=== PATIENT | male | born 1960 | race Caucasian/White ===

== ENCOUNTER → 2018-11-09 | Outpatient (CLI) | payer BC ==
--- NOTE | 2018-11-09 11:44 | NM ---
EXAMINATION TYPE: NM stress cardiolite complete DATE OF EXAM: 11/09/2018 COMPARISON: NONE HISTORY: Chest pain TECHNIQUE: After the intravenous administration of 10.05 mCi Tc 99m Sestamibi - Rest images obtained 63 minutes post injection. The patient exercised using a RICKY protocol and 1 minute prior to peak exercise was injected with 25.9 mCi Tc 99m Sestamibi - Stress images obtained 5 minutes post injecti on. FINDINGS: Targeted heart rate was achieved during performance of the study. Review of stress and rest SPECT amelie ges demonstrates suggestion of a small area of stress-induced reversibility within the inferior wall. Gated analysis shows normal wall motion with an estimated left ventricular ejection fraction of 62 %. IMPRESSION: Findings suggestive of a small area of stress-induced reversibility involving the inferior wall. A [place] level critical message alert has been initiated for Nadya Ayala MD via the [employer] Critical Results System on 11/09/2018 11:42 AM. This message alert has been sent to Nadya conde MD via the preferences provided by the clinician for the receipt of Radiology Critical Findin gs. Message ID [id number].
--- NOTE | 2018-11-09 15:31 | EST ---
EXERCISE STRESS AGE: 58 SEX: M HT: 5'7" WT: 185 PROTOCOL: Cardiolite Tru Stress test STAGE: II DURATION OF EXERCISE: 8:00 HEART RATE REST: 53 BLOOD PRESSURE REST: 135/81 MAXIMUM HEART RATE ACHIEVED: 140 MAXIMUM BLOOD PRESSURE: 166/90 85% MPHR: 136 100% MPHR: 160 METS: 9.7 INDICATIONS: Physical. CLINICAL INFORMATION: STRESS DATA: Pretesting physical examination showed a heart rate of 53, pressure is 135/81 mmHg. Baseline EKG showed sinus mechanism. The patient exercised on the treadmill according to Tru protocol for a total of 8 minutes and achieved 9.7 METS with max heart rate was 140 which is about 87% of maximum predicted heart rate. Maximum blood pressure was 166/90 mmHg. Clinically, the patient did not have any symptoms of chest pain or chest discomfort during the testing or on recovery and the EKG showed 0.[address]-segment depression. CONCLUSION: 1. Excellent exercise tolerance. 2. Mild EKG changes in response to exercise. 3. Please follow up on the Cardiolite portion on separate report from the Radiology Department. MMODL / IJN: [id number] /
== END ==
LOC: RADNMMAIN 07:52
PROVIDERS: ATTEND Family Medicine
DX: R07.89 Other chest pain (principal)
CPT/HCPCS: 93017; 78452; A9500

== ENCOUNTER 2021-04-29 16:18 | Inpatient (IN) | payer BC ==
[2021-04-29] MEDS ORDERED: MORPHINE SULFATE 4 MG/ML SYRINGE IVP STA (16:38)
--- NOTE | 2021-04-29 17:05 | ED ---
Fall HPI - General Chief Complaint: Fall Stated Complaint: fall Source: EMS Mode of arrival: EMS - History of Present Illness Initial Comments: 61-year-old male who presents to the emergency department after he fell off of the ladder. He states that he was only 2 foot up on the ladder however he lost his balance and fell, subsequently going over a deck. Entire height was about 8 feet. He denies hitting his head or having any loss of consciousness. He denies any neck or back pain. He does complain of left-sided rib pain and some mild shortness of breath. Patient is a small scratch noted to the tip of his nose. He denies any headaches or visual changes. No weakness or pain in his upper or lower extremities. He is not on any blood thinners. Patient arrives in c-collar. He was administered 500 mL of normal saline and 30 mg of Toradol for fever and pain - Related Data Home Medications Medication Instructions Recorded Confirmed Aspirin EC [Ecotrin Low Dose] 81 mg PO HS 04/29/21 04/29/21 Atorvastatin [Lipitor] 40 mg PO HS 04/29/21 04/29/21 Ergocalciferol [Vitamin D2 (1250 1,250 mcg PO GARCIA 04/29/21 04/29/21 Mcg = 31151 Iu)] Allergies Allergy/AdvReac Type Severity Reaction Status Date / Time acetaminophen [From Vicodin] AdvReac Nausea & Verified 04/29/21 18:14 Vomiting hydrocodone [From Vicodin] AdvReac Nausea & Verified 04/29/21 18:14 Vomiting Review of Systems ROS Statement: Those systems with pertinent positive or pertinent negative responses have been documented in the HPI. ROS Other: All systems not noted in ROS Statement are negative. Past Medical History Past Medical History: Coronary Artery Disease (CAD), GERD/Reflux History of Any Multi-Drug Resistant Organisms: None Reported Past Surgical History: Heart Catheterization With Stent, Orthopedic Surgery, Tonsillectomy Additional Past Surgical History / Comment(s): bilateral shoulder sx, Past Psychological History: No Psychological Hx Reported Smoking Status: Former smoker Past Alcohol Use History: None Reported Past Drug Use History: Marijuana General Exam Limitations: no limitations Course Vital Signs 04/29/21 04/29/21 04/29/21 16:27 17:21 18:00 Temperature 97.8 F Pulse Rate 72 78 48 L Respiratory 18 18 20 Rate Blood Pressure 124/71 121/70 85/45 O2 Sat by Pulse 97 96 97 Oximetry 04/29/21 04/29/21 04/29/21 18:13 18:28 20:40 Temperature Pulse Rate 70 80 87 Respiratory 18 18 18 Rate Blood Pressure 106/62 134/62 136/77 O2 Sat by Pulse 98 100 100 Oximetry 04/29/21 04/29/21 04/30/21 20:55 21:08 00:23 Temperature Pulse Rate 49 L 73 Respiratory 18 18 Rate Blood Pressure 77/46 134/74 O2 Sat by Pulse 96 100 100 Oximetry 04/30/21 04/30/21 00:30 00:39 Temperature Pulse Rate 85 71 Respiratory 18 18 Rate Blood Pressure 134/78 113/67 O2 Sat by Pulse 100 100 Oximetry - Reevaluation(s) Reevaluation #1: 04/29/21 18:18 Patient went hypotensive and bradycardic. Activated as a level [address] Leos Reevaluation #2: thoravent placed. CXR performed 04/30/21 20:38 Reevaluation #3: CXR shows improvement in the patient's pneumothorax. The catheter does not appear to be in appropriate position. I spoke with the radiologist who states that there is improvement in the pneumothorax therefore he does believe it is in proper position. Spoke with Dr. Leos about the. He is concerned that the patient may develop a spontaneous pneumo overnight due to several rib fractures and would like large bore chest tube placed. 04/30/212121 Reevaluation #4: Have had multiple discussions with the patient in regards to removing previous catheter and needing a new chest tube. Patient is extremely resistive to a large chest tube. Did discuss risks of going to the floor without 1. Patient originally agreed to a chest CT did prove that the tube was not in the correct position before approving of removal for event. Patient then refused CT as well as removal. I had a long discussion with the patient. Patient finally agrees to CT. CT is read by myself with inadequate placement of the sore event. At this time I did discuss the need to proceed with full chest tube placement. Patient does take some convincing however eventually agrees 04/30/21 00:16 Reevaluation #5: 04/30/21 01:29 Successful placement of chest tube Spoke with Dr. Josue. Patient will be downgraded to telemetry as vitals are stable, patient is comfortable, not on any oxygen. 04/30/21 01:48 Medical Decision Making - Medical Decision Making Upon arrival patient is placed into room 6. He presents with left-sided rib pain. Patient is not a trauma activation at this time as he does not meet criteria. Plain CT of the chest was ordered. Results to return the patient does have a moderate pneumothorax on the left as well as rib fractures 2 through 8. Patient does have an episode of bradycardia, hypotension and altered mental status. He is placed into the trauma bay and up to continuous pulse ox and cardiac monitoring. TXA, type and screen, cbc, cmp ordered. Patient sent back for a dedicated ct of his abdomen because of this ruptured renal cyst. I also repeated a chest x-ray to evaluate for tension pneumothorax. Patient subsequently has Thorvent placed. Decompression is performed as there is release of air and is secured to chest wall. X-rays performed however there is questionable placement of the tubing. I spoke with the radiologist who feels that since the pneumothorax is resolved, the chest tube is likely in the appropriate position. I did seek with Dr. Leos who is concerned that the patient could have return of his pneumothorax socially with his unstable rib fractures. I discussed this with the patient however he is resistant at getting another chest tube. Patient would like to know if tube is correctly placed or not. Patient does opt to go for a repeat CT to evaluate for catheter placement. He is aware of the risks of radiation exposure. CT is performed with visualization that the Thoravent is in the subcutaneous tissues. 20% pneumothorax persists. Because of this I am able to convince the patient to get a 28-Frisian chest tube. Procedure is performed and repeat chest x-ray demonstrates adequate placement. I spoke with Dr. Roy who states that the patient is stable he may go to telemetry. Patient will be admitted to Dr. Leos who was updated multiple times in regards to the patient's care. He is currently awaiting a bed on the floor - Lab Data Result diagrams: 04/29/21 17:55 04/29/21 17:55 Lab Results 04/29/21 04/29/21 04/29/21 Range/Units 17:55 17:55 17:55 WBC 11.3 H (3.8-10.6) k/uL RBC 4.30 (4.30-5.90) m/uL Hgb 13.8 (13.0-17.5) gm/dL Hct 40.1 (39.0-53.0) % MCV 93.2 (80.0-100.0) fL MCH 32.0 (25.0-35.0) pg MCHC 34.4 (31.0-37.0) g/dL RDW 12.6 (11.5-15.5) % Plt Count 156 (150-450) k/uL MPV 6.5 Neutrophils % 87 % Lymphocytes % 7 % Monocytes % 4 % Eosinophils % 0 % Basophils % 0 % Neutrophils # 9.8 H (1.3-7.7) k/uL Lymphocytes # 0.7 L (1.0-4.8) k/uL Monocytes # 0.5 (0-1.0) k/uL Eosinophils # 0.0 (0-0.7) k/uL Basophils # 0.0 (0-0.2) k/uL PT 11.2 (9.0-12.0) sec INR 1.1 (<1.2) APTT 22.9 (22.0-30.0) sec Sodium 140 (137-145) mmol/L Potassium 4.4 (3.5-5.1) mmol/L Chloride 106 (98-107) mmol/L Carbon Dioxide 25 (22-30) mmol/L Anion Gap 9 mmol/L BUN 20 (9-20) mg/dL Creatinine 0.95 (0.66-1.25) mg/dL Est GFR (CKD-EPI)AfAm >90 (>60 ml/min/1.73 sqM) Est GFR (CKD-EPI)NonAf 85 (>60 ml/min/1.73 sqM) Glucose 120 H (74-99) mg/dL Calcium 9.1 (8.4-10.2) mg/dL Total Bilirubin 1.2 (0.2-1.3) mg/dL AST 36 (17-59) U/L ALT 34 (4-49) U/L Alkaline Phosphatase 65 (38-126) U/L Total Protein 6.3 (6.3-8.2) g/dL Albumin 4.0 (3.5-5.0) g/dL - EKG Data EKG Comments: EKG demonstrates normal sinus rhythm with a ventricular rate of 60. MN interval 134. QRS 72. QTC 404. No acute ST segment elevations or depressions concerning for ischemic changes Disposition Clinical Impression: Fall, Multiple rib fractures, Acute pneumothorax, Ruptured cyst of kidney Disposition: ADMITTED IP TO THIS HOSP Condition: Serious Is patient prescribed a controlled substance at d/c from ED?: No Decision to Admit Reason: Admit from EC Decision Date: 04/29/21 Decision Time: 19:45
--- NOTE | 2021-04-29 17:32 | CT ---
EXAMINATION TYPE: CT chest wo con DATE OF EXAM: 04/29/2021 COMPARISON: Left rib pain status post fall from ladder. HISTORY: left sided rib pain following fall from ladder CT DLP: 299.7 mGycm. Automated Exposure Control for Dose Reduction was Utilized. TECHNIQUE: CT scan of the thorax is performed without IV contrast. FINDINGS: LUNGS: There is moderate left pneumothorax. There is small to moderate hazy opacity in the left lower lobe and additional mild dependent opacities elsewhere in the left lung. Minimal right atelectasis. Small left pleural effusion. MEDIASTINUM: Lack of IV contrast is noted to limit evaluation for mediastinal and especially hilar ad enopathy. There are no definitive greater than 1 cm hilar or mediastinal lymph nodes. No cardiomega ly or pericardial effusion is seen. Moderate coronary atherosclerotic disease. OTHER: Acute left second through ninth rib fractures. Associated mild chest wall emphysema tracking i nto left lower neck. A 5 cm left renal upper lobe cyst with mild calcification, wall irregularity and surrounding fat stranding. IMPRESSION: Moderate left pneumothorax in the setting of multiple rib fractures as enumerated above. Associated m ild to moderate pulmonary contusion. 5 cm left renal cyst with wall irregularity and surrounding inflammatory changes, concerning for post traumatic rupture. Attention on follow-up. Findings were reported to caring physician by me at time of dictation.
[2021-04-29] MEDS ORDERED: LIDOCAINE 1% INJ 10MG/ML (20 ML MDV) SQ ONE (17:35)
[2021-04-29] MEDS ORDERED: KETAMINE 10 MG/ML 20 ML VIAL IV ONE (17:39)
[2021-04-29] MEDS ORDERED: TRANEXAMIC ACID 1,000 MG in SODIUM CHLORIDE 0.9% 100 ML IV STA (18:08)
[2021-04-29 18:10] LABS: Basophils % (A) 0 %; Eosinophils % (A) 0 %; HCT 40.1 % (39.0-53.0); HGB 13.8 gm/dL (13.0-17.5); Lymphocytes # (A) 0.7 k/uL (1.0-4.8); Lymphocytes % (A) 7 %; MCHC 34.4 g/dL (31.0-37.0); MCV 93.2 fL (80.0-100.0); Mean Platelet Volume 6.5; Monocytes # (A) 0.5 k/uL (0-1.0); Monocytes % (A) 4 %; Neutrophils # (A) 9.8 k/uL (1.3-7.7); Neutrophils % (A) 87 %; Platelet Count 156 k/uL (150-450); RDW 12.6 % (11.5-15.5); WBC 11.3 k/uL (3.8-10.6)
[2021-04-29 18:20] LABS: INR 1.1 (<1.2); Partial Thromboplastin Time 22.9 sec (22.0-30.0); Prothrombin Time 11.2 sec (9.0-12.0)
[2021-04-29 18:23] LABS: ALT 34 U/L (4-49); AST 36 U/L (17-59); African American GFR (CKD) >90 (>60 ml/min/1.73 sqM); Alkaline Phosphatase 65 U/L (38-126); Anion Gap 9 mmol/L; Blood Urea Nitrogen 20 mg/dL (9-20); Calcium 9.1 mg/dL (8.4-10.2); Carbon Dioxide 25 mmol/L (22-30); Chloride 106 mmol/L (98-107); Glucose 120 mg/dL (74-99); Non-African American GFR(CKD) 85 (>60 ml/min/1.73 sqM); Potassium 4.4 mmol/L (3.5-5.1); Sodium 140 mmol/L (137-145); Total Bilirubin 1.2 mg/dL (0.2-1.3); Total Protein 6.3 g/dL (6.3-8.2)
--- NOTE | 2021-04-29 18:44 | XR ---
EXAMINATION TYPE: XR chest 1V DATE OF EXAM: 04/29/2021 COMPARISON: Same-day CT. HISTORY: Pain status post fall. TECHNIQUE: Single frontal view of the chest is obtained. FINDINGS: There is redemonstration of moderate left pneumothorax with accompanying opacity in the mi d to lower lung. The cardiac silhouette size is within normal limits. Multiple left rib fractures ar e better depicted on prior CT. Associated chest wall emphysema. IMPRESSION: Persistent moderate left pneumothorax with associated opacities. Multiple left rib fractures.
--- NOTE | 2021-04-29 19:15 | CT ---
EXAMINATION TYPE: CT abdomen pelvis w con DATE OF EXAM: 04/29/2021 COMPARISON: Same-day. HISTORY: pain from fall off ladder today CT DLP: 864 mGycm Automated exposure control for dose reduction was used. TECHNIQUE: Helical acquisition of images was performed from the lung bases through the pelvis. CONTRAST: Performed without Oral Contrast and with IV Contrast, patient injected with 100 mL of Isovue 300. FINDINGS: LUNG BASES: Partially imaged moderate left pneumothorax with accompanying opacity and small pleural e ffusion. LIVER/GB: No significant abnormality is appreciated. PANCREAS: No significant abnormality is seen. SPLEEN: No significant abnormality is seen. ADRENALS: No significant abnormality is seen. KIDNEYS: 4.5 x 3.7 cm left renal upper pole cyst with mild calcification, wall irregularity and surro unding fat stranding. No bilateral hydronephrosis or nephrolithiasis. FREE AIR: No free air is visualized. RETROPERITONEAL ADENOPATHY: None visualized REPRODUCTIVE ORGANS: No significant abnormality is seen URINARY BLADDER: No significant abnormality is seen. PELVIC ADENOPATHY: None visualized. OSSEOUS STRUCTURES: Multiple left rib fractures again seen.. BOWEL: No significant abnormality is seen. OTHER: None. IMPRESSION: GROSSLY UNCHANGED LEFT RENAL CYST WITH WALL IRREGULARITY AND SURROUNDING FAT STRANDING. AGAIN FINDING S ARE CONCERNING FOR CONTAINED RUPTURE. RECOMMEND FOLLOW-UP IMAGING TO DOCUMENT STABILITY. REDEMONSTRATED LEFT PNEUMOTHORAX WITH ASSOCIATED PULMONARY CONTUSION AND RIB FRACTURES. OTHERWISE NO ADDITIONAL ABNORMALITY OF THE ABDOMEN/PELVIS.
[2021-04-29] MEDS ORDERED: NALOXONE 0.4 MG/ML 1 ML VIAL IV PRN (19:45)
--- NOTE | 2021-04-29 21:27 | XR ---
EXAMINATION TYPE: XR chest 1V portable DATE OF EXAM: 04/29/2021 COMPARISON: Same day. HISTORY: Follow-up pneumothorax and pain. TECHNIQUE: Single frontal view of the chest is obtained. FINDINGS: There is interval placement of left upper chest tube. There is improvement of left pneumot horax with trace residual. Persistent moderate left mid to lower lobe opacity. No significant pleural effusion. The cardiac silhouette size is within normal limits. Multiple left rib fractures better d epicted on prior imaging. Persistent bilateral chest wall emphysema. IMPRESSION: Improvement of left pneumothorax status post left chest tube with trace residual. Additional abnormality as above.
[2021-04-29] MEDS ORDERED: MIDAZOLAM 1 MG/ML 5 ML VIAL IV STA (23:54)
[2021-04-30] MEDS ORDERED: LIDOCAINE 1% INJ 10MG/ML (20 ML MDV) SQ ONE
[2021-04-30] MEDS ORDERED: MIDAZOLAM 1 MG/ML 5 ML VIAL IV STA ×2 (00:04→00:46)
--- NOTE | 2021-04-30 00:44 | CT ---
EXAMINATION TYPE: CT chest wo con DATE OF EXAM: 04/29/2021 COMPARISON: Today HISTORY: Chest tube placement CT DLP: 368.3 mGycm Automated exposure control for dose reduction was used. Images obtained from the thoracic inlet to the diaphragm without contrast. There is approximate 20% left side pneumothorax. There is some pneumomediastinum. There is soft tissu e air on the left chest wall. There is some tubing over the left anterior chest. I see no evidence of a chest tube within the pleural space. Heart size is normal. There is no pericardial effusion. There is pleural thickening and fluid and ate lectasis at the lung bases and more on the left side. There are no hilar masses. The thoracic spine i s intact. Sternum is intact. There is nondisplaced lateral left rib fractures. IMPRESSION: Chest tube is not within the pleural space. There is increasing pleural fluid and infiltrate and atelectasis left lower lobe compared to initial exam 6 hours ago. There is also some increasing atelectasis right lower lobe compared to last exam. Pneumothorax and pneumomediastinum. Pneumomediastinum is increased.
[2021-04-30] MEDS: HYDROmorphone 1 MG/ML 1 ML SYRINGE IVP PRN (00:48)
--- NOTE | 2021-04-30 01:23 | XR ---
EXAMINATION TYPE: XR chest 1V portable DATE OF EXAM: 04/30/2021 COMPARISON: Yesterday HISTORY: Chest tube placement TECHNIQUE: Single view FINDINGS: There is left-sided chest tube. The tube is approximately 3 cm into the chest. There is sof t tissue air on the left chest wall. There is pneumomediastinum. There is clearing of the left apical pneumothorax compared to the first exam at 6:00 PM. Trachea is midline. There is some infiltrate and atelectasis at the lung bases. IMPRESSION: There is clearing of the pneumothorax. There is increasing infiltrate and atelectasis at the lung bases compared to initial exam. Left chest tube in fairly good position.
[2021-04-30 03:18] LABS: African American GFR (CKD) >90 (>60 ml/min/1.73 sqM); Anion Gap 9 mmol/L; Blood Urea Nitrogen 16 mg/dL (9-20); Calcium 8.2 mg/dL (8.4-10.2); Carbon Dioxide 20 mmol/L (22-30); Chloride 109 mmol/L (98-107); Glucose 128 mg/dL (74-99); Non-African American GFR(CKD) >90 (>60 ml/min/1.73 sqM); Potassium 4.5 mmol/L (3.5-5.1); Sodium 138 mmol/L (137-145)
[2021-04-30 03:21] LABS: HCT 37.5 % (39.0-53.0); HGB 12.9 gm/dL (13.0-17.5); MCH 32.9 pg (25.0-35.0); MCHC 34.4 g/dL (31.0-37.0); MCV 95.7 fL (80.0-100.0); Mean Platelet Volume 6.9; Platelet Count 130 k/uL (150-450); RBC 3.91 m/uL (4.30-5.90); RDW 12.9 % (11.5-15.5); WBC 8.5 k/uL (3.8-10.6)
[2021-04-30 04:02] LABS: Glucose,Whole Blood 137 mg/dL (75-99)
[2021-04-30] MEDS: ACETAMINOPHEN TAB 500 MG TAB PO PRN ×2 (08:29→16:20)
--- NOTE | 2021-04-30 09:17 | P.GSCN ---
History of Present Illness Consult date: 04/30/21 Reason for Consult: Traumatic left sided pneumothorax Requesting physician: Elana Lim History of present illness: This is a 61 year old active gentleman who follows on an outpatient basis with Dr. Aguirre for primary care. He has a previous medical history of CAD s/p stent placement, HLD, previous tobacco dependence, occasional etoh and occasional marijuana use. Yesterday he was up on a ladder and fell hitting his left chest. He denies loss of consciousness. He had significant left sided pain and some shortness of breath so he reported to the emergency room at [facility]. Chest x-ray demonstrated left sided rib fractures as well as left-sided pneumothorax. CT scan confirmed the same. Initially a thoravent was placed but there was no improvement in the pneumothorax. Repeat CT confir med the thoravent was not in the pleural space. The thoravent was removed and a thoracostomy tube was placed by the emergency room physicians with good re- expansion of the lung. 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 Review of Systems ROS was completed and was negative except as noted - Cardiovascular Reports as per HPI, Reports chest pain, Reports shortness of breath Past Medical History Past Medical History: Coronary Artery Disease (CAD), Hyperlipidemia History of Any Multi-Drug Resistant Organisms: None Reported Past Surgical History: Heart Catheterization With Stent, Orthopedic Surgery, Tonsillectomy Additional Past Surgical History / Comment(s): bilateral shoulder sx, left great toe bone growth removal Past Anesthesia/Blood Transfusion Reactions: No Reported Reaction Date of Last Stent Placement:: 01/2020 Past Psychological History: No Psychological Hx Reported Smoking Status: Former smoker Past Alcohol Use History: Daily Additional Past Alcohol Use History / Comment(s): one glass of wine daily Past Drug Use History: Marijuana Additional History: Quit smoking 15 years ago; drinks 1/2 glass wine most days, occasional beer; occasionally smokes marijuana - Past Family History Mother Additional Family Medical History / Comment(s): from infection after gastric surgery Father Additional Family Medical History / Comment(s): of old age in his 90s Medications and Allergies Home Medications Medication Instructions Recorded Confirmed Type Aspirin EC [Ecotrin Low Dose] 81 mg PO HS 04/29/21 04/29/21 History Atorvastatin [Lipitor] 40 mg PO HS 04/29/21 04/29/21 History Ergocalciferol [Vitamin D2 (1250 1,250 mcg PO GARCIA 04/29/21 04/29/21 History Mcg = 54502 Iu)] Allergies Allergy/AdvReac Type Severity Reaction Status Date / Time acetaminophen [From Vicodin] AdvReac Nausea & Verified 04/29/21 18:14 Vomiting hydrocodone [From Vicodin] AdvReac Nausea & Verified 04/29/21 18:14 Vomiting Surgical - Exam Vital Signs Temp Pulse Resp BP Pulse Ox 97.8 F 72 18 124/71 97 04/29/21 16:27 04/29/21 16:27 04/29/21 16:27 04/29/21 16:27 04/29/21 16:27 CONSTITUTIONAL: Awake and alert, appears comfortable, cooperative, well- developed, well-nourished, no pain, no acute distress EYES: Pupils equal, round, reactive to light, normal ocular movement ENT: Moist mucous membranes without oral lesions present NECK: No masses, no bruits, trachea midline RESPIRATORY: Lungs sounds clear to auscultation bilaterally, diminished in the left base. Respirations even, nonlabored. Currently on room air with oxygen saturation 94%. Strong cough. Left chest tube present to wall suction, no air leak present CARDIOVASCULAR: S1, S2 present. Regular rate and rhythm, sinus rhythm on telemetry. Palpable peripheral pulses bilaterally. No edema present. No calf pain or tenderness noted. GASTROINTESTINAL: Abdomen soft, nontender, nondistended without masses or organomegaly noted. There is no rebound or guarding present. Active bowel sounds present 4 quadrants. GENITOURINARY: Deferred INTEGUMENTARY: Skin is warm and dry with evidence of good perfusion. NEUROLOGIC: Cranial nerves II through XII intact, normal coordination, no obvious motor or sensory deficits, speech is normal MUSKULOSKELETAL: Able to move all extremities, strength equal bilaterally, no rmal posture PSYCHIATRIC: Alert and oriented to person place and time, appropriate affect, intact judgment and insight Results - Labs 04/30/21 02:23 04/30/21 02:23 Abnormal Lab Results - Last 24 Hours (Table) 04/29/21 04/29/21 04/30/21 Range/Units 17:55 17:55 02:23 WBC 11.3 H (3.8-10.6) k/uL RBC (4.30-5.90) m/uL Hgb (13.0-17.5) gm/dL Hct (39.0-53.0) % Plt Count (150-450) k/uL Neutrophils # 9.8 H (1.3-7.7) k/uL Lymphocytes # 0.7 L (1.0-4.8) k/uL Chloride 109 H (98-107) mmol/L Carbon Dioxide 20 L (22-30) mmol/L Glucose 120 H 128 H (74-99) mg/dL POC Glucose (mg/dL) (75-99) mg/dL Calcium 8.2 L (8.4-10.2) mg/dL 04/30/21 04/30/21 Range/Units 02:23 04:00 WBC (3.8-10.6) k/uL RBC 3.91 L (4.30-5.90) m/uL Hgb 12.9 L (13.0-17.5) gm/dL Hct 37.5 L (39.0-53.0) % Plt Count 130 L (150-450) k/uL Neutrophils # (1.3-7.7) k/uL Lymphocytes # (1.0-4.8) k/uL Chloride (98-107) mmol/L Carbon Dioxide (22-30) mmol/L Glucose (74-99) mg/dL POC Glucose (mg/dL) 137 H (75-99) mg/dL Calcium (8.4-10.2) mg/dL Diabetes panel 04/29/21 04/30/21 Range/Units 17:55 02:23 Sodium 140 138 (137-145) mmol/L Potassium 4.4 4.5 (3.5-5.1) mmol/L Chloride 106 109 H (98-107) mmol/L Carbon Dioxide 25 20 L (22-30) mmol/L BUN 20 16 (9-20) mg/dL Creatinine 0.95 0.77 (0.66-1.25) mg/dL Glucose 120 H 128 H (74-99) mg/dL Calcium 9.1 8.2 L (8.4-10.2) mg/dL AST 36 (17-59) U/L ALT 34 (4-49) U/L Alkaline Phosphatase 65 (38-126) U/L Total Protein 6.3 (6.3-8.2) g/dL Albumin 4.0 (3.5-5.0) g/dL Calcium panel 04/29/21 04/30/21 Range/Units 17:55 02:23 Calcium 9.1 8.2 L (8.4-10.2) mg/dL Albumin 4.0 (3.5-5.0) g/dL Pituitary panel 04/29/21 04/30/21 Range/Units 17:55 02:23 Sodium 140 138 (137-145) mmol/L Potassium 4.4 4.5 (3.5-5.1) mmol/L Chloride 106 109 H (98-107) mmol/L Carbon Dioxide 25 20 L (22-30) mmol/L BUN 20 16 (9-20) mg/dL Creatinine 0.95 0.77 (0.66-1.25) mg/dL Glucose 120 H 128 H (74-99) mg/dL Calcium 9.1 8.2 L (8.4-10.2) mg/dL Adrenal panel 04/29/21 04/30/21 Range/Units 17:55 02:23 Sodium 140 138 (137-145) mmol/L Potassium 4.4 4.5 (3.5-5.1) mmol/L Chloride 106 109 H (98-107) mmol/L Carbon Dioxide 25 20 L (22-30) mmol/L BUN 20 16 (9-20) mg/dL Creatinine 0.95 0.77 (0.66-1.25) mg/dL Glucose 120 H 128 H (74-99) mg/dL Calcium 9.1 8.2 L (8.4-10.2) mg/dL Total Bilirubin 1.2 (0.2-1.3) mg/dL AST 36 (17-59) U/L ALT 34 (4-49) U/L Alkaline Phosphatase 65 (38-126) U/L Total Protein 6.3 (6.3-8.2) g/dL Albumin 4.0 (3.5-5.0) g/dL - Imaging Chest x-ray: report reviewed, image reviewed CT scan - chest: report reviewed, image reviewed Assessment and Plan Assessment: 1. Traumatic left sided pneumothorax with left sided non-displaced rib fractures 2. Fall from ladder without loss of consciousness 3. History of CAD s/p PCI 4. Previous tobacco dependance Plan: The patient was seen and examined at the bedside. Chart/diagnostics were reviewed. The case was discussed in detail with Dr. Gutierrez. We will place chest tube to water seal, monitor for any air leak. IS ordered and should be encouraged. Pain control with current regimen, tylenol and toradol added as patient doesn't want narcotics. Increase activity, ambulate as tolerated. Medical management of other comorbidities per primary care service. More recommendations to follow. Thank you for this consult. We will follow along with you. Time with Patient: Greater than 30
[2021-04-30 09:58] LABS: Appearance,Urine Clear (Clear); Bilirubin,Urine Negative (Negative); Blood,Urine Moderate (Negative); Color,Urine Yellow; Glucose,Urine (UA) Trace (Negative); Ketones,Urine Negative (Negative); Leukocyte Esterase,Urine Negative (Negative); Mucus,Urine Rare /hpf; Nitrite,Urine Negative (Negative); Protein,Urine Trace (Negative); RBC,Urine 29 /hpf (0-5); Specific Gravity,Urine 1.039 (1.001-1.035); Urobilinogen,Urine <2.0 mg/dL (<2.0); WBC,Urine 3 /hpf (0-5)
--- NOTE | 2021-04-30 10:05 | P.CNPUL ---
History of Present Illness Consult date: 04/30/21 Requesting physician: Scott Leos Reason for consult: pneumothorax, abnormal CXR/CT Chief complaint: Left-sided chest discomfort, status post fall History of present illness: This is a very pleasant 61-year-old gentleman who follows with Dr. Aguirre as his primary care provider. He has a history of coronary artery disease with previous stent placement, hyperlipidemia. Yesterday he fell from a ladder and developed left-sided chest wall pain and presented here for the same. Computed tomography scan of the chest revealed a moderate left pneumothorax with multiple rib fractures with associated mild to moderate pulmonary contusion. Initially, Thoravent was placed however it required removal and a left-sided chest tube was inserted in the emergency room. He was admitted to the intensive care unit. Chest tube currently to wall suction. No noted air leak. HEENT today in con sultation in the ICU. He is currently sitting up in bed. Awake and alert in no acute distress. No worsening shortness of breath, cough or congestion. No hemoptysis. He is maintaining good O2 saturations in the 90s on room air. No IV fluids. White count 8.5. Hemoglobin 12.9. Platelets 1:30. Sodium 1:30. Potassium 4.5. Creatinine 0.77. Glucose 128. He was initiated on Dilaudid for pain control. Incentive spirometer at the bedside. Review of Systems REVIEW OF SYSTEMS: CONSTITUTIONAL: Denies any recent significant weight loss or weight gain. EYES: Denies change in vision. EARS, NOSE, MOUTH, THROAT: Denies headaches, denies sore throat. CARDIOVASCULAR: Positive for left-sided chest pain, no palpitations or syncopal episodes. RESPIRATORY: Positive for shortness of breath, no cough, congestion or hemoptysis. GASTROINTESTINAL: Denies change in appetite, denies abdominal pain GENITOURINARY: Denies hematuria, denies infections. MUSKULOSKELETAL: Denies pain, denies swelling. INTEGUMENTARY: Denies rash, denies eczema. NEUROLOGICAL: Denies recent memory loss, no recent seizure activity. PSYCHIATRIC: Denies anxiety, denies depression. HEMATOLOGIC/LYMPHATIC: Denies anemia, denies enlarged lymph nodes. Past Medical History Past Medical History: Coronary Artery Disease (CAD), Hyperlipidemia History of Any Multi-Drug Resistant Organisms: None Reported Past Surgical History: Heart Catheterization With Stent, Orthopedic Surgery, Tonsillectomy Additional Past Surgical History / Comment(s): bilateral shoulder sx, left great toe bone growth removal Past Anesthesia/Blood Transfusion Reactions: No Reported Reaction Date of Last Stent Placement:: 01/2020 Past Psychological History: No Psychological Hx Reported Smoking Status: Former smoker Past Alcohol Use History: Daily Additional Past Alcohol Use History / Comment(s): one glass of wine daily Past Drug Use History: Marijuana - Past Family History Mother Additional Family Medical History / Comment(s): from infection after gastric surgery Father Additional Family Medical History / Comment(s): of old age in his 90s Medications and Allergies Home Medications Medication Instructions Recorded Confirmed Type Aspirin EC [Ecotrin Low Dose] 81 mg PO HS 04/29/21 04/29/21 History Atorvastatin [Lipitor] 40 mg PO HS 04/29/21 04/29/21 History Ergocalciferol [Vitamin D2 (1250 1,250 mcg PO GARCIA 04/29/21 04/29/21 History Mcg = 24502 Iu)] Allergies Allergy/AdvReac Type Severity Reaction Status Date / Time acetaminophen [From Vicodin] AdvReac Nausea & Verified 04/29/21 18:14 Vomiting hydrocodone [From Vicodin] AdvReac Nausea & Verified 04/29/21 18:14 Vomiting Physical Exam Vitals: Vital Signs Temp Pulse Pulse Resp BP BP Pulse Ox 04/30/21 08:00 98.3 F 54 L 18 116/63 95 04/30/21 04:30 71 15 94 L 04/30/21 04:00 97.6 F 80 12 125/74 94 L 04/30/21 03:30 97.8 F 71 18 103/67 95 04/30/21 01:20 70 18 103/64 95 04/30/21 00:39 71 18 113/67 100 04/30/21 00:30 85 18 134/78 100 04/30/21 00:23 100 04/29/21 21:08 73 18 134/74 100 04/29/21 20:55 49 L 18 77/46 96 04/29/21 20:40 87 18 136/77 100 04/29/21 18:28 80 18 134/62 100 04/29/21 18:13 70 18 106/62 98 04/29/21 18:00 48 L 20 85/45 97 04/29/21 17:21 78 18 121/70 96 04/29/21 16:27 97.8 F 72 18 124/71 97 Intake and Output 04/29/21 04/30/21 04/30/21 22:59 06:59 14:59 Output Total 200 Balance -200 Output: Urine 200 Other: Weight 75.75 kg 81.2 kg GENERAL EXAM: Alert, pleasant 61-year-old gentleman, on room air, comfortable in no apparent distress. HEAD: Normocephalic. EYES: Normal reaction of pupils, equal size. NOSE: Clear with pink turbinates. THROAT: No erythema or exudates. NECK: No masses, no JVD. CHEST: Left-sided chest tube secured into place. To wall suction. No leak dete cted. LUNGS: Equal air entry with crackles in the left lung base. CVS: S1 and S2 normal with no audible murmur, regular rhythm. ABDOMEN: No hepatosplenomegaly, normal bowel sounds, no guarding or rigidity. SPINE: No scoliosis or deformity SKIN: No rashes CENTRAL NERVOUS SYSTEM: No focal deficits, tone is normal in all 4 extremities. EXTREMITIES: There is no peripheral edema. No clubbing, no cyanosis. Peripheral pulses are intact. Results - Laboratory Findings CBC and BMP: 04/30/21 02:23 04/30/21 02:23 PT/INR, D-dimer PT 11.2 sec (9.0-12.0) 04/29/21 17:55 INR 1.1 (<1.2) 04/29/21 17:55 Abnormal lab findings: Abnormal Labs 04/29/21 04/29/21 04/30/21 17:55 17:55 02:23 WBC 11.3 H RBC Hgb Hct Plt Count Neutrophils # 9.8 H Lymphocytes # 0.7 L Chloride 109 H Carbon Dioxide 20 L Glucose 120 H 128 H POC Glucose (mg/dL) Calcium 8.2 L 04/30/21 04/30/21 02:23 04:00 WBC RBC 3.91 L Hgb 12.9 L Hct 37.5 L Plt Count 130 L Neutrophils # Lymphocytes # Chloride Carbon Dioxide Glucose POC Glucose (mg/dL) 137 H Calcium - Diagnostic Findings Chest x-ray: image reviewed CT scan - chest: image reviewed Assessment and Plan Assessment: 1 Acute left-sided pneumothorax secondary to trauma from fall requiring left sided chest tube placement on 04/29/2021 2 Acute left-sided rib fractures secondary to above 3 History of coronary artery disease with previous stent placement 4 Hyperlipidemia Plan: The patient was seen and evaluated by Dr. Josue Chest x-ray, CAT scans and labs reviewed Currently stable from the pulmonary standpoint Educated regarding the importance of the incentive spirometer and cough and deep breathing exercises CT services have been consulted Could transfer out of the intensive care unit to a regular medical floor We will continue to follow and make further recommendations based on his clinical status I, the cosigning physician, performed a history & physical examination of the patient. Lungs sounds with crackles in the left base. Maintaining good O2 saturations in the 90s on room air. I discussed the assessment and plan of care with my nurse practitioner, Zahraa Mtz. I attest to the above consultation as dictated by her. Time with Patient: Greater than 30
--- NOTE | 2021-04-30 16:33 | P.GSHP ---
<Lorri Eden - Last Filed: 04/30/21 16:18> History of Present Illness H&P Date: 04/30/21 CHIEF COMPLAINT: Fall off ladder HISTORY OF PRESENT ILLNESS: This is a 61-year-old male with history of coronary artery disease with cardiac stent and former dictated dependence. Patient presented to the hospital after he had a fall off of his ladder and then fell from his deck. Told distance of falling was about 8 feet. He landed on his left side. He complained of left-sided rib pain and shortness of breath. He denies hitting his head or any loss of consciousness. Patient had CT of the chest showing a moderate left pneumothorax with multiple rib fractures. Associated mild to moderate pulmonary contusion. 5 cm left renal cyst with wall irregularity and surrounding inflammatory changes concerning for posttraumatic rupture. Computed tomography scan abdomen and pelvis showed no additional abnormality. Patient had chest tube placed for the pneumothorax. Patient was admitted to ICU. Patient denies any abdominal pain. Denies any nausea or vomiting. Patient denies any hematuria. Patient has been admitted to trauma service. PAST MEDICAL HISTORY: See list. PAST SURGICAL HISTORY: See list. MEDICATIONS: See list. ALLERGIES: See list. SOCIAL HISTORY: No illicit drug use. REVIEW OF SYSTEMS: CONSTITUTIONAL: Denies fever or chills. HEENT: Denies blurred vision, vision changes, or eye pain. Denies hemoptysis CARDIOVASCULAR: Denies chest pain or pressure. RESPIRATORY: No shortness of breath. GASTROINTESTINAL: See HPI for pertinent findings HEMATOLOGIC: Denies bleeding disorders. GENITOURINARY: Denies any blood in urine or increased urinary frequency. SKIN: Denies pruitis. Denies rash. PHYSICAL EXAM: VITAL SIGNS: Reviewed GENERAL: Well-developed in no acute distress. HEENT: No sclera icterus. Extraocular movements grossly intact. Moist buccal mucosa. Head is atraumatic, normocephalic. No nasal drainage. ABDOMEN: Soft. Nondistended. Nontender NEUROLOGIC: Alert and oriented. Cranial nerves II through XII grossly intact. LABORATORY DATA: WBC 11.3 down to 8.5 hemoglobin 12.9 platelets 1:30 INR 1.1 sodium 138 potassium 4.5 creatinine 0.77 glucose 128 LFTs normal Urinalysis shows moderate amount of blood IMAGING: Computed tomography scan of the chest abdomen and pelvis as stated above Chest x-ray shows clearing of pneumothorax. There is increasing infiltrate and atelectasis at the lung bases. Left chest tube in fairly good position. ASSESSMENT: 1. Trauma from fall of about 8 feet 2. Acute left-sided pneumothorax secondary to trauma and requiring chest tube placement 3. Left rib fractures of the second through ninth ribs 4. Pulmonary contusion 5. 5 cm left renal cyst with inflammatory changes concerning for posttraumatic rupture noted on CAT scan PLAN: -Encourage patient to use incentive spirometer and to continue deep breathing exercises -Continue to monitor pulse ox -Continue pain medication as needed -Consult placed for pulmonary service, cardiothoracic service and urology -continue regular diet -Continue supportive care -GI prophylaxis Protonix and DVT prophylaxis SCDs Physician Snailer note has been reviewed by physician. Signing provider agrees with the documented findings, assessment, and plan of care. Past Medical History Past Medical History: Coronary Artery Disease (CAD), Hyperlipidemia History of Any Multi-Drug Resistant Organisms: None Reported Past Surgical History: Heart Catheterization With Stent, Orthopedic Surgery, Tonsillectomy Additional Past Surgical History / Comment(s): bilateral shoulder sx, left great toe bone growth removal Past Anesthesia/Blood Transfusion Reactions: No Reported Reaction Date of Last Stent Placement:: 01/2020 Past Psychological History: No Psychological Hx Reported Smoking Status: Former smoker Past Alcohol Use History: Daily Additional Past Alcohol Use History / Comment(s): one glass of wine daily Past Drug Use History: Marijuana - Past Family History Mother Additional Family Medical History / Comment(s): from infection after gastric surgery Father Additional Family Medical History / Comment(s): of old age in his 90s Medications and Allergies Home Medications Medication Instructions Recorded Confirmed Type Aspirin EC [Ecotrin Low Dose] 81 mg PO HS 04/29/21 04/29/21 History Atorvastatin [Lipitor] 40 mg PO HS 04/29/21 04/29/21 History Ergocalciferol [Vitamin D2 (1250 1,250 mcg PO GARCIA 04/29/21 04/29/21 History Mcg = 70308 Iu)] Allergies Allergy/AdvReac Type Severity Reaction Status Date / Time acetaminophen [From Vicodin] AdvReac Nausea & Verified 04/29/21 18:14 Vomiting hydrocodone [From Vicodin] AdvReac Nausea & Verified 04/29/21 18:14 Vomiting Surgical - Exam Vital Signs Temp Pulse Resp BP Pulse Ox 97.8 F 72 18 124/71 97 08/10/21 16:27 04/29/21 16:27 04/29/21 16:27 04/29/21 16:27 04/29/21 16:27 Results - Labs 04/30/21 02:23 04/30/21 02:23 Abnormal Lab Results - Last 24 Hours (Table) 04/29/21 04/29/21 04/30/21 Range/Units 17:55 17:55 02:23 WBC 11.3 H (3.8-10.6) k/uL RBC (4.30-5.90) m/uL Hgb (13.0-17.5) gm/dL Hct (39.0-53.0) % Plt Count (150-450) k/uL Neutrophils # 9.8 H (1.3-7.7) k/uL Lymphocytes # 0.7 L (1.0-4.8) k/uL Chloride 109 H (98-107) mmol/L Carbon Dioxide 20 L (22-30) mmol/L Glucose 120 H 128 H (74-99) mg/dL POC Glucose (mg/dL) (75-99) mg/dL Calcium 8.2 L (8.4-10.2) mg/dL Ur Specific [place] (1.001-1.035) Urine Protein (Negative) Urine Glucose (UA) (Negative) Urine Blood (Negative) Urine RBC (0-5) /hpf Urine Mucus (None) /hpf 04/30/21 04/30/21 04/30/21 Range/Units 02:23 04:00 09:30 WBC (3.8-10.6) k/uL RBC 3.91 L (4.30-5.90) m/uL Hgb 12.9 L (13.0-17.5) gm/dL Hct 37.5 L (39.0-53.0) % Plt Count 130 L (150-450) k/uL Neutrophils # (1.3-7.7) k/uL Lymphocytes # (1.0-4.8) k/uL Chloride (98-107) mmol/L Carbon Dioxide (22-30) mmol/L Glucose (74-99) mg/dL POC Glucose (mg/dL) 137 H (75-99) mg/dL Calcium (8.4-10.2) mg/dL Ur Specific [place] 1.039 H (1.001-1.035) Urine Protein Trace H (Negative) Urine Glucose (UA) Trace H (Negative) Urine Blood Moderate H (Negative) Urine RBC 29 H (0-5) /hpf Urine Mucus Rare H (None) /hpf Diabetes panel 04/29/21 04/30/21 Range/Units 17:55 02:23 Sodium 140 138 (137-145) mmol/L Potassium 4.4 4.5 (3.5-5.1) mmol/L Chloride 106 109 H (98-107) mmol/L Carbon Dioxide 25 20 L (22-30) mmol/L BUN 20 16 (9-20) mg/dL Creatinine 0.95 0.77 (0.66-1.25) mg/dL Glucose 120 H 128 H (74-99) mg/dL Calcium 9.1 8.2 L (8.4-10.2) mg/dL AST 36 (17-59) U/L ALT 34 (4-49) U/L Alkaline Phosphatase 65 (38-126) U/L Total Protein 6.3 (6.3-8.2) g/dL Albumin 4.0 (3.5-5.0) g/dL Calcium panel 04/29/21 04/30/21 Range/Units 17:55 02:23 Calcium 9.1 8.2 L (8.4-10.2) mg/dL Albumin 4.0 (3.5-5.0) g/dL Pituitary panel 04/29/21 04/30/21 Range/Units 17:55 02:23 Sodium 140 138 (137-145) mmol/L Potassium 4.4 4.5 (3.5-5.1) mmol/L Chloride 106 109 H (98-107) mmol/L Carbon Dioxide 25 20 L (22-30) mmol/L BUN 20 16 (9-20) mg/dL Creatinine 0.95 0.77 (0.66-1.25) mg/dL Glucose 120 H 128 H (74-99) mg/dL Calcium 9.1 8.2 L (8.4-10.2) mg/dL Adrenal panel 04/29/21 04/30/21 Range/Units 17:55 02:23 Sodium 140 138 (137-145) mmol/L Potassium 4.4 4.5 (3.5-5.1) mmol/L Chloride 106 109 H (98-107) mmol/L Carbon Dioxide 25 20 L (22-30) mmol/L BUN 20 16 (9-20) mg/dL Creatinine 0.95 0.77 (0.66-1.25) mg/dL Glucose 120 H 128 H (74-99) mg/dL Calcium 9.1 8.2 L (8.4-10.2) mg/dL Total Bilirubin 1.2 (0.2-1.3) mg/dL AST 36 (17-59) U/L ALT 34 (4-49) U/L Alkaline Phosphatase 65 (38-126) U/L Total Protein 6.3 (6.3-8.2) g/dL Albumin 4.0 (3.5-5.0) g/dL <Evangelista Osborne - Last Filed: 04/30/21 18:23> History of Present Illness As above. Patient admitted after fall with left sided pneumothorax and rib fractures. Urology consult is for left renal cyst. Continue diet as tolerated. Management of chest tube for thoracic surgery. May transfer out of ICU. Surgical - Exam Vital Signs Temp Pulse Resp BP Pulse Ox 97.8 F 72 18 124/71 97 04/29/21 16:27 04/29/21 16:27 04/29/21 16:27 04/29/21 16:27 04/29/21 16:27 Results - Labs 04/30/21 02:23 04/30/21 02:23 Abnormal Lab Results - Last 24 Hours (Table) 04/29/21 04/30/21 04/30/21 Range/Units 17:55 02:23 02:23 RBC 3.91 L (4.30-5.90) m/uL Hgb 12.9 L (13.0-17.5) gm/dL Hct 37.5 L (39.0-53.0) % Plt Count 130 L (150-450) k/uL Chloride 109 H (98-107) mmol/L Carbon Dioxide 20 L (22-30) mmol/L Glucose 120 H 128 H (74-99) mg/dL POC Glucose (mg/dL) (75-99) mg/dL Calcium 8.2 L (8.4-10.2) mg/dL Ur Specific [place] (1.001-1.035) Urine Protein (Negative) Urine Glucose (UA) (Negative) Urine Blood (Negative) Urine RBC (0-5) /hpf Urine Mucus (None) /hpf 04/30/21 04/30/21 Range/Units 04:00 09:30 RBC (4.30-5.90) m/uL Hgb (13.0-17.5) gm/dL Hct (39.0-53.0) % Plt Count (150-450) k/uL Chloride (98-107) mmol/L Carbon Dioxide (22-30) mmol/L Glucose (74-99) mg/dL POC Glucose (mg/dL) 137 H (75-99) mg/dL Calcium (8.4-10.2) mg/dL Ur Specific [place] 1.039 H (1.001-1.035) Urine Protein Trace H (Negative) Urine Glucose (UA) Trace H (Negative) Urine Blood Moderate H (Negative) Urine RBC 29 H (0-5) /hpf Urine Mucus Rare H (None) /hpf Diabetes panel 04/29/21 04/30/21 Range/Units 17:55 02:23 Sodium 140 138 (137-145) mmol/L Potassium 4.4 4.5 (3.5-5.1) mmol/L Chloride 106 109 H (98-107) mmol/L Carbon Dioxide 25 20 L (22-30) mmol/L BUN 20 16 (9-20) mg/dL Creatinine 0.95 0.77 (0.66-1.25) mg/dL Glucose 120 H 128 H (74-99) mg/dL Calcium 9.1 8.2 L (8.4-10.2) mg/dL AST 36 (17-59) U/L ALT 34 (4-49) U/L Alkaline Phosphatase 65 (38-126) U/L Total Protein 6.3 (6.3-8.2) g/dL Albumin 4.0 (3.5-5.0) g/dL Calcium panel 04/29/21 04/30/21 Range/Units 17:55 02:23 Calcium 9.1 8.2 L (8.4-10.2) mg/dL Albumin 4.0 (3.5-5.0) g/dL Pituitary panel 04/29/21 04/30/21 Range/Units 17:55 02:23 Sodium 140 138 (137-145) mmol/L Potassium 4.4 4.5 (3.5-5.1) mmol/L Chloride 106 109 H (98-107) mmol/L Carbon Dioxide 25 20 L (22-30) mmol/L BUN 20 16 (9-20) mg/dL Creatinine 0.95 0.77 (0.66-1.25) mg/dL Glucose 120 H 128 H (74-99) mg/dL Calcium 9.1 8.2 L (8.4-10.2) mg/dL Adrenal panel 04/29/21 04/30/21 Range/Units 17:55 02:23 Sodium 140 138 (137-145) mmol/L Potassium 4.4 4.5 (3.5-5.1) mmol/L Chloride 106 109 H (98-107) mmol/L Carbon Dioxide 25 20 L (22-30) mmol/L BUN 20 16 (9-20) mg/dL Creatinine 0.95 0.77 (0.66-1.25) mg/dL Glucose 120 H 128 H (74-99) mg/dL Calcium 9.1 8.2 L (8.4-10.2) mg/dL Total Bilirubin 1.2 (0.2-1.3) mg/dL AST 36 (17-59) U/L ALT 34 (4-49) U/L Alkaline Phosphatase 65 (38-126) U/L Total Protein 6.3 (6.3-8.2) g/dL Albumin 4.0 (3.5-5.0) g/dL
[2021-04-30] MEDS: KETOROLAC 15 MG/ML 1 ML VIAL IVP PRN (22:22)
[2021-04-30] MEDS: ATORVASTATIN 40 MG TAB PO SCH (22:25)
[2021-05-01] MEDS: HEPARIN SODIUM,PORCINE/PF 5,000 UNIT/0.5 ML SYRINGE SQ SCH ×3 (02:36→14:35)
[2021-05-01] MEDS: HYDROmorphone 1 MG/ML 1 ML SYRINGE IVP PRN (05:26)
[2021-05-01] MEDS: KETOROLAC 15 MG/ML 1 ML VIAL IVP PRN ×2 (06:27→12:13)
[2021-05-01] MEDS: PANTOPRAZOLE 40 MG TABLET PO SCH (06:28)
[2021-05-01] MEDS ORDERED: ONDANSETRON 4 MG/2 ML VIAL IVP PRN (06:56)
[2021-05-01] MEDS ORDERED: ONDANSETRON 4 MG/2 ML VIAL ONE (06:59)
--- NOTE | 2021-05-01 07:34 | P.PN ---
Subjective Progress Note Date: 05/01/21 Principal diagnosis: Traumatic left sided pneumothorax with left sided non-displaced rib fractures, fall from ladder without loss of consciousness. Previous medical history of CAD s/p PCI, previous tobacco dependance The patient was sitting up in a recliner in the intensive care unit in no acute respiratory distress. He did complain of nausea and diaphoresis which resolved quickly. States pain from chest tube is controlled on current medication regimen, denies shortness of breath. Remains on room air, achieving 2000 mL on his incentive spirometry. Left sided chest tube remains to waterseal, no air leak present. Chest x-ray reviewed. No new concerns. Objective - Vital Signs Vital signs: Vital Signs Temp 98.2 F 05/01/21 02:00 Pulse 58 L 05/01/21 02:00 Resp 18 05/01/21 02:00 BP 131/66 04/30/21 20:00 Pulse Ox 94 L 05/01/21 02:00 Intake & Output 04/30/21 05/01/21 05/01/21 18:59 06:59 18:59 Intake Total 400 Output Total 750 Balance -350 Intake: Oral 400 Output: Urine 750 Other: # Voids 3 - Exam CONSTITUTIONAL: Appears comfortable, cooperative, no acute respiratory distress RESPIRATORY: Lungs sounds diminished bilaterally. Respirations even, nonlabored. Currently on room air with oxygen saturation 94%. Able to achieve 2000 mL on incentive spirometry. Strong cough. CARDIOVASCULAR: S1, S2 present. Regular rate and rhythm, sinus rhythm on telemetry. Palpable peripheral pulses bilaterally. No edema present. No calf pain or tenderness noted. SCDs present. GASTROINTESTINAL: Abdomen soft, nontender, nondistended. Active bowel sounds present 4 quadrants. Tolerating diet. GENITOURINARY: Continues to void INTEGUMENTARY: Skin is warm and dry with evidence of good perfusion. NEUROLOGIC: Cranial nerves II through XII intact MUSKULOSKELETAL: Able to move all extremities, strength equal bilaterally, gait normal PSYCHIATRIC: Alert and oriented to person place and time, appropriate affect, intact judgment and insight INVASIVE LINES AND TUBES: Left pleural chest tube present to waterseal, no air leak present, no drainage present - Allied health notes Allied health notes reviewed: nursing - Labs CBC & Chem 7: 04/30/21 02:23 04/30/21 02:23 Labs: Abnormal Lab Results - Last 24 Hours (Table) 04/30/21 Range/Units 09:30 Ur Specific [place] 1.039 H (1.001-1.035) Urine Protein Trace H (Negative) Urine Glucose (UA) Trace H (Negative) Urine Blood Moderate H (Negative) Urine RBC 29 H (0-5) /hpf Urine Mucus Rare H (None) /hpf - Imaging and Cardiology Chest x-ray: image reviewed Assessment and Plan Assessment: 1. Traumatic left sided pneumothorax with left sided non-displaced rib fractures 2. Fall from ladder without loss of consciousness 3. History of CAD s/p PCI 4. Previous tobacco dependance Plan: 1. Will discontinue left-sided chest tube today. Repeat chest x-ray after removal 2. Encourage incentive spirometry use 10 times every hour while awake 3. Pain control with current medication regimen 4. Increase activity, ambulate as tolerated 5. Once chest tube removed and follow-up chest x-ray stable may discharge to home from cardiothoracic surgery standpoint 6. Medical management of other comorbidities per primary care service 7. More recommendations to follow Time with Patient: Greater than 30
--- NOTE | 2021-05-01 08:17 | XR ---
EXAMINATION TYPE: XR chest 2V DATE OF EXAM: 05/01/2021 COMPARISON: 04/30/2021 HISTORY: 61-year-old male pneumothorax TECHNIQUE: PA and lateral views FINDINGS: Heart and lungs are normal in size. Aorta and pulmonary vasculature within normal limits. Left-sided rib fractures with left-sided chest tube. Note that the sidehole of the chest tube has been pulled ou t beyond the thoracic wall margin and should be repositioned appropriately. [id number] left ef fusion with adjacent patchy left basilar opacity. Left apical pneumothorax measuring 9 mm, not well s een previously. IMPRESSION: 1. Left-sided rib fractures. Note that the left chest tube has been pulled back. The side hole is now outside the pleural cavity. Recommend appropriate repositioning. 2. 9 mm left apical pneumothorax. 3. [id number] left effusion with adjacent atelectasis persists.
--- NOTE | 2021-05-01 09:21 | P.PN ---
Subjective Progress Note Date: 05/01/21 Principal diagnosis: Trauma, fall, left-sided rib fractures This is a very pleasant 61-year-old gentleman who follows with Dr. Aguirre as his primary care provider. He has a history of coronary artery disease with previous stent placement, hyperlipidemia. Yesterday he fell from a ladder and developed left-sided chest wall pain and presented here for the same. Computed tomography scan of the chest revealed a moderate left pneumothorax with multiple rib fractures with associated mild to moderate pulmonary contusion. Initially, Thoravent was placed however it required removal and a left-sided chest tube was inserted in the emergency room. He was admitted to the intensive care unit. Chest tube currently to wall suction. No noted air leak. HEENT today in consu ltation in the ICU. He is currently sitting up in bed. Awake and alert in no acute distress. No worsening shortness of breath, cough or congestion. No hemoptysis. He is maintaining good O2 saturations in the 90s on room air. No IV fluids. White count 8.5. Hemoglobin 12.9. Platelets 1:30. Sodium 1:30. Potassium 4.5. Creatinine 0.77. Glucose 128. He was initiated on Dilaudid for pain control. Incentive spirometer at the bedside. The patient is seen today 05/01/2021 in follow-up in the intensive care unit. He is currently on room air. No IV fluids. Awake and alert in no acute d istress. Sitting up in a chair at the bedside. Left-sided chest tube remains in place. No air leak detected. Chest x-ray continues to show left-sided rib fractures. Low 9 mm left apical pneumothorax. Small to moderate left effusion with adjacent atelectasis. He continues working well with the incentive spirometer. His pain is well controlled. Objective - Vital Signs Vital signs: Vital Signs Temp 98.2 F 05/01/21 02:00 Pulse 58 L 05/01/21 02:00 Resp 18 05/01/21 02:00 BP 131/66 04/30/21 20:00 Pulse Ox 94 L 05/01/21 02:00 Intake & Output 04/30/21 05/01/21 05/01/21 18:59 06:59 18:59 Intake Total 400 Output Total 750 Balance -350 Intake: Oral 400 Output: Urine 750 Other: # Voids 3 - Exam GENERAL EXAM: Alert, pleasant 61-year-old gentleman, on room air, comfortable in no apparent distress. HEAD: Normocephalic. EYES: Normal reaction of pupils, equal size. NOSE: Clear with pink turbinates. THROAT: No erythema or exudates. NECK: No masses, no JVD. CHEST: Left-sided chest tube secured into place. To waterseal. No leak detected. LUNGS: Equal air entry with crackles in the left lung base. CVS: S1 and S2 normal with no audible murmur, regular rhythm. ABDOMEN: No hepatosplenomegaly, normal bowel sounds, no guarding or rigidity. SPINE: No scoliosis or deformity SKIN: No rashes CENTRAL NERVOUS SYSTEM: No focal deficits, tone is normal in all 4 extremities. EXTREMITIES: There is no peripheral edema. No clubbing, no cyanosis. Peripheral pulses are intact. - Labs CBC & Chem 7: 04/30/21 02:23 04/30/21 02:23 Labs: Abnormal Lab Results - Last 24 Hours (Table) 04/30/21 Range/Units 09:30 Ur Specific [place] 1.039 H (1.001-1.035) Urine Protein Trace H (Negative) Urine Glucose (UA) Trace H (Negative) Urine Blood Moderate H (Negative) Urine RBC 29 H (0-5) /hpf Urine Mucus Rare H (None) /hpf Assessment and Plan Assessment: 1 Acute left-sided pneumothorax secondary to trauma from fall requiring left sided chest tube placement on 04/29/2021 2 Acute left-sided rib fractures secondary to above 3 Hematuria 4 History of coronary artery disease with previous stent placement 5 Hyperlipidemia Plan: The patient was seen and evaluated by Dr. Josue Chest x-ray reviewed Continue incentive spirometer and cough and deep breathing exercises CT services may remove chest tube today Follow-up chest x-ray Possible discharge home this afternoon Follow-up in the office in 1-2 weeks' time I, the cosigning physician, performed a history & physical examination of the patient. Lungs sounds with crackles in the left base. Maintaining good O2 saturations in the 90s on room air. I discussed the assessment and plan of care with my nurse practitioner, Zahraa Mtz. I attest to the above note as dictated by her.
[2021-05-01] MEDS ORDERED: MELOXICAM 7.5 MG TAB PO PRN (10:28)
[2021-05-01] MEDS ORDERED: traMADol 50 MG TAB PO PRN (10:29)
--- NOTE | 2021-05-01 10:48 | XR ---
EXAMINATION TYPE: XR chest 2V DATE OF EXAM: 05/01/2021 COMPARISON: 05/01/2021 TECHNIQUE: PA and lateral views submitted. HISTORY: Post chest tube removal FINDINGS: Subcutaneous emphysema noted. There is a less than 10 % left apical pneumothorax with left lower lobe infiltrate and small effusion. Heart size stable. Chest tube is been removed. Suspect multiple left- sided rib fractures. Right lung remains clear. IMPRESSION: 1. 10 % left apical pneumothorax with findings persistent of subcutaneous emphysema and pneumomediast inum. 2. Correlate for left-sided rib fractures.
--- NOTE | 2021-05-01 12:21 | P.PAINCN ---
History of Present Illness - Reason for Consult Consult date: 05/01/21 - History of Present Illness This is 61 years old male, admitted to [facility] , he fell off the ladder and he had multiple left side fractures,and he had left pneumothorax, patient was admitted to the intensive care unit, he is complaining of severe left-sided chest pain, pain radiates from the shoulder blade area to the anterior side of the left side chest wall, pain management consultation was placed to range for switching him from IV medication to oral medication in preparation for discharge, and had ALLERGY to hydrocodone and acetaminophen Past Medical History Past Medical History: Coronary Artery Disease (CAD), Hyperlipidemia History of Any Multi-Drug Resistant Organisms: None Reported Past Surgical History: Heart Catheterization With Stent, Orthopedic Surgery, Tonsillectomy Additional Past Surgical History / Comment(s): bilateral shoulder sx, left great toe bone growth removal Past Anesthesia/Blood Transfusion Reactions: No Reported Reaction Date of Last Stent Placement:: 01/2020 Past Psychological History: No Psychological Hx Reported Smoking Status: Former smoker Past Alcohol Use History: Daily Additional Past Alcohol Use History / Comment(s): one glass of wine daily Past Drug Use History: Marijuana - Past Family History Mother Additional Family Medical History / Comment(s): from infection after gastric surgery Father Additional Family Medical History / Comment(s): of old age in his 90s Medications and Allergies Home Medications Medication Instructions Recorded Confirmed Type Aspirin EC [Ecotrin Low Dose] 81 mg PO HS 04/29/21 04/29/21 History Atorvastatin [Lipitor] 40 mg PO HS 04/29/21 04/29/21 History Ergocalciferol [Vitamin D2 (1250 1,250 mcg PO GARCIA 04/29/21 04/29/21 History Mcg = 88407 Iu)] Allergies Allergy/AdvReac Type Severity Reaction Status Date / Time acetaminophen [From Vicodin] AdvReac Nausea & Verified 04/29/21 18:14 Vomiting hydrocodone [From Vicodin] AdvReac Nausea & Verified 04/29/21 18:14 Vomiting Physical Exam Vitals: Vital Signs Temp Pulse Resp BP Pulse Ox 05/01/21 02:00 98.2 F 58 L 18 94 L 04/30/21 20:00 98.8 F 55 L 18 131/66 93 L 04/30/21 13:43 98.2 F 86 18 124/67 96 Intake and Output 04/30/21 05/01/21 05/01/21 22:59 06:59 14:59 Intake Total 400 Output Total 750 Balance -350 Intake: Oral 400 Output: Urine 750 Other: # Voids 1 3 GENERAL EXAM: Alert, pleasant 61-year-old gentleman, on room air, comfortable in no apparent distress. HEAD: Normocephalic. EYES: Normal reaction of pupils, equal size. NOSE: Clear with pink turbinates. THROAT: No erythema or exudates. NECK: No masses, no JVD. CHEST: Left-sided chest tube secured into place. To waterseal. No leak detected. LUNGS: Equal air entry with crackles in the left lung base. CVS: S1 and S2 normal with no audible murmur, regular rhythm. ABDOMEN: No hepatosplenomegaly, normal bowel sounds, no guarding or rigidity. SPINE: No scoliosis or deformity SKIN: No rashes CENTRAL NERVOUS SYSTEM: No focal deficits, tone is normal in all 4 extremities. EXTREMITIES: There is no peripheral edema. No clubbing, no cyanosis. Peripheral pulses are intact. Results CBC & Chem 7: 04/30/21 02:23 04/30/21 02:23 Assessment and Plan Plan: Assessment and plan=1-acute left side musculoskeletal pain, secondary to left side multiple rib fracture. Recommend to start patient on Lidoderm patch 5% 12 hours on 12 hours off. Start patient on Ultram 50 mg every 6 hours PRN Start patient on Mobic 7.5 mg twice a day Time with Patient: Less than 30 PQRS Measure Charge Sheet PQRS Narrative: Do You Want the Pneumonia No Vaccine AT THIS TIME? Blood Pressure [Right Arm] 131/66 Blood Pressure 125/74 Pain Intensity [Left Chest] 3 Pain Intensity 8 Pain Scale Used Numeric (1 - 10) Scale Used Numeric (1 - 10) Home Medications: Ambulatory Orders Aspirin EC [Ecotrin Low Dose] 81 mg PO HS 04/29/21 Atorvastatin [Lipitor] 40 mg PO HS 04/29/21 Ergocalciferol [Vitamin D2 (1250 Mcg = 18563 Iu)] 1,250 mcg PO GARCIA 04/29/21
[2021-05-01] MEDS: LIDOCAINE 5% PATCH TOPICAL SCH (13:28)
--- NOTE | 2021-05-01 14:15 | P.PN ---
<Lorri Eden - Last Filed: 05/01/21 14:10> Subjective Progress Note Date: 05/01/21 CHIEF COMPLAINT: Fall off ladder HISTORY OF PRESENT ILLNESS: Patient remains in the ICU as a MedSurg overflow. He is followed by trauma service after a fall off of a ladder. Patient is sitting up in bedside chair. He does have left-sided rib pain. His pain is controlled with IV pain medication. Oral pain medication will be started today. Patient had chest tube removed this morning. Repeat chest x-ray had shown a 10% left apical pneumothorax with findings persistent of subcutaneous emphysema and pneumomediastinum. Patient is followed by cardiothoracic service. Afebrile. On room air satting at 94% urinalysis showed moderate blood. Patient denies any new pain. Denies any abdominal pain. PHYSICAL EXAM: VITAL SIGNS: Reviewed. GENERAL: Well-developed in no acute distress. HEENT: No sclera icterus. Extraocular movements grossly intact. Moist buccal mucosa. Head is atraumatic, normocephalic. ABDOMEN: Soft. Nondistended. Nontender. NEUROLOGIC: Alert and oriented. Cranial nerves II through XII grossly intact. ASSESSMENT: 1. Trauma from fall of about 8 feet 2. Acute left-sided pneumothorax secondary to trauma and requiring chest tube placement 3. Left rib fractures of the second through ninth ribs 4. Pulmonary contusion 5. 5 cm left renal cyst with inflammatory changes concerning for posttraumatic rupture noted on CAT scan PLAN: -Pain medicine recommendations noted -Awaiting urology consult -Pneumothorax management per cardiothoracic team -Encouraged patient to use incentive spirometer -Encouraged patient to increase activity-continue GI and DVT prophylaxis Physician Jewel Bearing Polisher note has been reviewed by physician. Signing provider agrees with the documented findings, assessment, and plan of care. Objective - Vital Signs Vital signs: Vital Signs Temp 97.7 F 05/01/21 08:00 Pulse 54 L 05/01/21 08:00 Resp 12 05/01/21 08:00 BP 115/58 05/01/21 08:00 Pulse Ox 94 L 05/01/21 08:00 Intake & Output 04/30/21 05/01/21 05/01/21 18:59 06:59 18:59 Intake Total 400 Output Total 750 Balance -350 Intake: Oral 400 Output: Urine 750 Other: # Voids 3 - Labs CBC & Chem 7: 04/30/21 02:23 04/30/21 02:23 <Evangelista Osborne - Last Filed: 05/01/21 15:57> Subjective As above. Patient doing well today. Sitting up in the chair. Pain is well- controlled. Repeat x-ray after chest rule with small pneumothorax. We'll repeat x-rays tomorrow. Anticipate discharge tomorrow. Objective - Vital Signs Vital signs: Vital Signs Temp 98.2 F 05/01/21 14:00 Pulse 61 05/01/21 14:00 Resp 12 05/01/21 14:00 BP 120/55 05/01/21 14:00 Pulse Ox 96 05/01/21 14:00 Intake & Output 04/30/21 05/01/21 05/01/21 18:59 06:59 18:59 Intake Total 400 Output Total 750 Balance -350 Intake: Oral 400 Output: Urine 750 Other: # Voids 3 2 - Labs CBC & Chem 7: 04/30/21 02:23 04/30/21 02:23
[2021-05-01] MEDS: traMADol 50 MG TAB PO PRN (17:26)
[2021-05-01] MEDS ORDERED: LIDOCAINE 5% PATCH TOPICAL SCH (20:00)
[2021-05-01] MEDS: ATORVASTATIN 40 MG TAB PO SCH (21:46)
[2021-05-01] MEDS: MELOXICAM 7.5 MG TAB PO SCH (21:46)
[2021-05-02] MEDS: HEPARIN SODIUM,PORCINE/PF 5,000 UNIT/0.5 ML SYRINGE SQ SCH ×2 (02:29→07:38)
[2021-05-02] MEDS: PANTOPRAZOLE 40 MG TABLET PO SCH (06:52)
--- NOTE | 2021-05-02 07:51 | XR ---
EXAMINATION TYPE: XR chest 1V portable DATE OF EXAM: 05/02/2021 COMPARISON: 05/01/2021 INDICATION: Check pneumothorax TECHNIQUE: Single frontal view of the chest is obtained. FINDINGS: The heart size is mildly prominent. The pulmonary vasculature is normal. Left lower lobe infiltrate is present. Correlate for atelectasis. Developing pneumonia should be cons idered. No increasing pneumothorax is evident. Subcutaneous emphysema is present. IMPRESSION: 1. Very minimal residual pneumothorax remains present. 2. Developing left lower lobe infiltrate. Follow-up is recommended.
[2021-05-02] MEDS: LIDOCAINE 5% PATCH TOPICAL SCH (07:54)
[2021-05-02] MEDS: MELOXICAM 7.5 MG TAB PO SCH (07:55)
--- NOTE | 2021-05-02 08:39 | P.GSCN ---
History of Present Illness Consult date: 05/02/21 Reason for Consult: Left renal cyst Requesting physician: Evangelista Osborne History of present illness: The patient is a 61-year-old white male with an unremarkable urologic history. He fell over the rail of his deck and landed on his left side, sustaining left rib fractures and a left pneumothorax. CT scan shows a 5 cm left upper renal cyst with surrounding inflammation. I am consulted for this reason. Review of Systems - Genitourinary Denies flank pain, Denies hematuria Past Medical History Past Medical History: Coronary Artery Disease (CAD), Hyperlipidemia History of Any Multi-Drug Resistant Organisms: None Reported Past Surgical History: Heart Catheterization With Stent, Orthopedic Surgery, Tonsillectomy Additional Past Surgical History / Comment(s): bilateral shoulder sx, left great toe bone growth removal Past Anesthesia/Blood Transfusion Reactions: No Reported Reaction Date of Last Stent Placement:: 01/2020 Past Psychological History: No Psychological Hx Reported Smoking Status: Former smoker Past Alcohol Use History: Daily Additional Past Alcohol Use History / Comment(s): one glass of wine daily Past Drug Use History: Marijuana - Past Family History Mother Additional Family Medical History / Comment(s): from infection after gastric surgery Father Additional Family Medical History / Comment(s): of old age in his 90s Medications and Allergies Home Medications Medication Instructions Recorded Confirmed Type Aspirin EC [Ecotrin Low Dose] 81 mg PO HS 04/29/21 04/29/21 History Atorvastatin [Lipitor] 40 mg PO HS 04/29/21 04/29/21 History Ergocalciferol [Vitamin D2 (1250 1,250 mcg PO GARCIA 04/29/21 04/29/21 History Mcg = 65393 Iu)] Allergies Allergy/AdvReac Type Severity Reaction Status Date / Time hydrocodone [From Vicodin] AdvReac Nausea & Verified 04/29/21 18:14 Vomiting Surgical - Exam Vital Signs Temp Pulse Resp BP Pulse Ox 97.8 F 72 18 124/71 97 04/29/21 16:27 04/29/21 16:27 04/29/21 16:27 04/29/21 16:27 04/29/21 16:27 - General well developed, well nourished, no distress - Respiratory normal respiratory effort - Abdomen Abdomen: soft, non tender, no guarding, no rigid, no rebound - Psychiatric oriented to time, oriented to person, oriented to place, speech is normal, memory intact Results - Labs 04/30/21 02:23 04/30/21 02:23 - Imaging CT scan - abdomen: report reviewed, image reviewed Assessment and Plan (1) Renal cyst Current Visit: Yes Status: Acute Code(s): N28.1 - CYST OF KIDNEY, ACQUIRED SNOMED Code(s): 686448453 Plan: I reassured the patient that simple renal cysts are common and of no concern. The appearance of his cyst is suggestive of a possible partial cyst rupture. No intervention is warranted at this time. However, he will follow up with me in 3 months, at which time a repeat computed tomography scan will be obtained. Please notify me if I can be of any further assistance. Time with Patient: Greater than 30
[2021-05-02 08:49] VITALS: BP 118/56; PULSE 77; RESP 16; TEMP 97.8
--- NOTE | 2021-05-02 10:22 | P.PN ---
Subjective Progress Note Date: 05/02/21 Principal diagnosis: Traumatic left sided pneumothorax with left sided non-displaced rib fractures, fall from ladder without loss of consciousness. Past medical history significan t for CAD s/p PCI, and remote history of tobacco dependance. The patient was seen in follow-up today 05/02/2021 at his bedside in the intensive care unit. Currently he is up ambulating in his room, is awake, alert and oriented 3 and is in no acute apparent distress. His left total chest tube was removed without incident yesterday. Oxygen saturations are 94% on room air and he is achieving 1500 mL on his incentive spirometry. A follow-up chest x- ray shows a tiny residual apical pneumothorax. He remains afebrile the last 24 hours. Denies any complaints of shortness of breath although is complaining of some left-sided chest pain and is guarding his left chest. He states the pain is well controlled on the current pain medication regimen. Objective - Vital Signs Vital signs: Vital Signs Temp 97.8 F 05/02/21 08:00 Pulse 77 05/02/21 08:00 Resp 16 05/02/21 08:00 BP 118/56 05/02/21 08:00 Pulse Ox 95 05/02/21 08:00 Intake & Output 05/01/21 05/02/21 05/02/21 18:59 06:59 18:59 Intake Total 200 Balance 200 Intake: Oral 200 Other: # Voids 1 2 - Exam CONSTITUTIONAL: Up ambulating in the intensive care unit room. Appears comfortable, cooperative, no acute respiratory distress. RESPIRATORY: Lungs sounds essentially clear throughout. Respirations are symmetrical and nonlabored. Currently on room air with oxygen saturation 94%. Able to achieve 1500 mL on incentive spirometry. Strong cough. CARDIOVASCULAR: S1, S2 present, negative for S3, gallop or murmur. Regular rate and rhythm. Palpable peripheral pulses bilaterally. No edema present. No calf pain or tenderness noted. SCDs present. GASTROINTESTINAL: Abdomen soft, nontender, nondistended. Active bowel sounds present 4 quadrants. Tolerating diet. GENITOURINARY: Continues to void. INTEGUMENTARY: Skin is warm and dry with no clubbing or cyanosis. Dressing clean, dry and intact to his left lateral chest. No drainage or redness presen t. NEUROLOGIC: Cranial nerves II through XII intact. MUSKULOSKELETAL: Able to move all extremities, strength equal bilaterally, gait normal. PSYCHIATRIC: Alert and oriented to person place and time, appropriate affect, intact judgment and insight - Labs CBC & Chem 7: 04/30/21 02:23 04/30/21 02:23 Assessment and Plan Assessment: 1. Traumatic left sided pneumothorax with left sided non-displaced rib fractures 2. Fall from ladder without loss of consciousness 3. History of CAD s/p PCI 4. Remote history of tobacco dependance Plan: 1. Left pleural chest tube was removed without incident yesterday 05/01/2021. 2. Encourage incentive spirometry use 10 times every hour while awake. 3. Pain control with current medication regimen 4. Increase activity, ambulate as tolerated. Out of bed for all meals. 5. May discharge to home from cardiothoracic surgery standpoint, when okayed by other consultants and primary care service. 6. Medical management of other comorbidities per primary care service. 7. We will continue to follow the patient on an as-needed basis. Time with Patient: Less than 30
--- NOTE | 2021-05-02 10:30 | P.PN ---
Subjective Progress Note Date: 05/02/21 Principal diagnosis: Trauma, fall, left-sided rib fractures This is a very pleasant 61-year-old gentleman who follows with Dr. Aguirre as his primary care provider. He has a history of coronary artery disease with previous stent placement, hyperlipidemia. Yesterday he fell from a ladder and developed left-sided chest wall pain and presented here for the same. Computed tomography scan of the chest revealed a moderate left pneumothorax with multiple rib fractures with associated mild to moderate pulmonary contusion. Initially, Thoravent was placed however it required removal and a left-sided chest tube was inserted in the emergency room. He was admitted to the intensive care unit. Chest tube currently to wall suction. No noted air leak. HEENT today in consu ltation in the ICU. He is currently sitting up in bed. Awake and alert in no acute distress. No worsening shortness of breath, cough or congestion. No hemoptysis. He is maintaining good O2 saturations in the 90s on room air. No IV fluids. White count 8.5. Hemoglobin 12.9. Platelets 1:30. Sodium 1:30. Potassium 4.5. Creatinine 0.77. Glucose 128. He was initiated on Dilaudid for pain control. Incentive spirometer at the bedside. The patient is seen today 05/01/2021 in follow-up in the intensive care unit. He is currently on room air. No IV fluids. Awake and alert in no acute d istress. Sitting up in a chair at the bedside. Left-sided chest tube remains in place. No air leak detected. Chest x-ray continues to show left-sided rib fractures. Low 9 mm left apical pneumothorax. Small to moderate left effusion with adjacent atelectasis. He continues working well with the incentive spirometer. His pain is well controlled. The patient is seen today May 02 in follow-up in the intensive care unit. He is currently sitting up in a chair at the bedside. Awake and alert in no acute distress. Maintaining good O2 saturations in the 90s on room air. No IV fluids. Chest x-ray reveals a very minimal residual pneumothorax on the left. Some left lower lobe infiltrate remains. Mild subcutaneous emphysema. No shortness of breath, cough or congestion. No hemoptysis. Afebrile. Hemodynamically stable. Working well with the incentive spirometer. Pulling approximately 1500 ML's. Objective - Vital Signs Vital signs: Vital Signs Temp 97.8 F 05/02/21 08:00 Pulse 77 05/02/21 08:00 Resp 16 05/02/21 08:00 BP 118/56 05/02/21 08:00 Pulse Ox 95 05/02/21 08:00 Intake & Output 05/01/21 05/02/21 05/02/21 18:59 06:59 18:59 Intake Total 200 Balance 200 Intake: Oral 200 Other: # Voids 1 2 - Exam GENERAL EXAM: Alert, pleasant 61-year-old gentleman, on room air, comfortable in no apparent distress. HEAD: Normocephalic. EYES: Normal reaction of pupils, equal size. NOSE: Clear with pink turbinates. THROAT: No erythema or exudates. NECK: No masses, no JVD. CHEST: Left-sided chest tube removed. Dressing dry and intact. LUNGS: Equal air entry with crackles in the left lung base. CVS: S1 and S2 normal with no audible murmur, regular rhythm. ABDOMEN: No hepatosplenomegaly, normal bowel sounds, no guarding or rigidity. SPINE: No scoliosis or deformity SKIN: No rashes CENTRAL NERVOUS SYSTEM: No focal deficits, tone is normal in all 4 extremities. EXTREMITIES: There is no peripheral edema. No clubbing, no cyanosis. Peripheral pulses are intact. - Labs CBC & Chem 7: 04/30/21 02:23 04/30/21 02:23 Assessment and Plan Assessment: 1 Acute left-sided pneumothorax secondary to trauma from fall requiring left sided chest tube placement on 04/29/2021, removed 05/01/2021 2 Acute left-sided rib fractures secondary to above 3 Hematuria, being followed by urology 4 History of coronary artery disease with previous stent placement 5 Hyperlipidemia Plan: The patient was seen and evaluated by Dr. Josue Chest x-ray reviewed, minimal pneumothorax remains Continue incentive spirometer and cough and deep breathing exercises Possible discharge home this afternoon Follow-up in the office in 1-2 weeks' time I, the cosigning physician, performed a history & physical examination of the patient. Lungs sounds with crackles in the left base. Maintaining good O2 saturations in the 90s on room air. I discussed the assessment and plan of care with my nurse practitioner, Zahraa Mtz. I attest to the above note as dictated by her.
--- NOTE | 2021-05-02 11:14 | P.DS ---
<KathyLorri ding - Last Filed: 05/02/21 11:10> Providers Expected date of discharge: 05/02/21 Hospital Course: Discharge diagnosis 1. Trauma from fall of about 8 feet 2. Acute left-sided pneumothorax secondary to trauma and requiring chest tube placement 3. Left rib fractures of the second through ninth ribs 4. Pulmonary contusion 5. 5 cm left renal cyst with inflammatory changes concerning for posttraumatic rupture noted on CAT scan Hospital course This is a 61-year-old male with history of coronary artery disease with cardiac stent and former dictated dependence. Patient presented to the hospital after he had a fall off of his ladder and then fell from his deck. Told distance of falling was about 8 feet. He landed on his left side. He complained of left- sided rib pain and shortness of breath. He denies hitting his head or any loss of consciousness. Patient had CT of the chest showing a moderate left pneumothorax with multiple rib fractures. Associated mild to moderate pulmonary contusion. 5 cm left renal cyst with wall irregularity and surrounding inflammatory changes concerning for posttraumatic rupture. Computed tomography scan abdomen and pelvis showed no additional abnormality. Patient had chest tube placed for the pneumothorax. Patient was admitted to ICU. Patient had chest tube removed. Repeat chest x-ray had shown very minimal residual pneumothorax. Patient seen evaluated by both cardiology and pulmonary service. They have cleared patient for discharge. He is on room air satting at 95%. He is tolerating diet. He has been up and ambulating. He's afebrile. His pain is controlled. He's been cleared by all consulting physicians. He'll follow-up with urology outpatient regarding his renal cyst in 3 months. Patient is stable for discharge. Please refer to chart for any further details. Physician Applications Systems Engineer note has been reviewed by physician. Signing provider agrees with the documented findings, assessment, and plan of care. Patient Condition at Discharge: Stable Plan - Discharge Summary Discharge Rx Participant: No New Discharge Prescriptions: New Meloxicam [Mobic] 7.5 mg PO BID #14 tab Lidocaine 5% Patch [Lidoderm 5% Patch] 1 patch TOPICAL DAILY #7 patch traMADol HCl [Ultram] 50 mg PO QID PRN #12 tab PRN Reason: Pain Continue Atorvastatin [Lipitor] 40 mg PO HS Aspirin EC [Ecotrin Low Dose] 81 mg PO HS Ergocalciferol [Vitamin D2 (1250 Mcg = 37641 Iu)] 1,250 mcg PO GARCIA Discharge Medication List Aspirin EC [Ecotrin Low Dose] 81 mg PO HS 04/29/21 [History] Atorvastatin [Lipitor] 40 mg PO HS 04/29/21 [History] Ergocalciferol [Vitamin D2 (1250 Mcg = 75218 Iu)] 1,250 mcg PO GARCIA 04/29/21 [History] Lidocaine 5% Patch [Lidoderm 5% Patch] 1 patch TOPICAL DAILY #7 patch 05/02/21 [Rx] Meloxicam [Mobic] 7.5 mg PO BID #14 tab 05/02/21 [Rx] traMADol HCl [Ultram] 50 mg PO QID PRN #12 tab 05/02/21 [Rx] Follow up Appointment(s)/Referral(s): Lazaro Echeverria MD [STAFF PHYSICIAN] - 08/06/21 9:40 am (Call office one month before appointment so CT can be scheduled.) Makenna Aguirre MD [Primary Care Provider] - 3 Days (Unable to make follow up appointment. Office is closed today. Please call for an appointment.) Eric Josue DO [Doctor of Osteopathic Medicine] - 05/22/21 2:30 pm (You have an appointment with Zahraa NUNN at Dr. Josue's office. She rounded on you with Dr. Josue while you were in the hospital.) None,Stated [REFERRING] - 1-2 days Patient Instructions/Handouts: Traumatic Pneumothorax (DC), Rib Fracture (DC) Activity/Diet/Wound Care/Special Instructions: At time of discharge, schedule F/U appointment with Dr. Echeverria in 3 months ([phone]). Discharge Disposition: HOME SELF-CARE <Evangelista Osborne - Last Filed: 05/02/21 12:03> Providers Date of admission: 04/29/21 19:45 Attending physician: Scott Leos Consults: 04/29/21 19:45 Consult Physician Routine Consulting Provider: Pino Burdick Consult Reason/Comments: multiple rib fractures Do you want consulting provider notified?: Yes Consult Physician Stat Consulting Provider: Eric Josue Consult Reason/Comments: fall, multiple left rib fractures, acute pneumothorax Do you want consulting provider notified?: Already Contacted 04/30/21 01:30 Consult Physician Urgent Consulting Provider: Eb Gutierrez Consult Reason/Comments: traumatic left hemopneumothorax s.p chest tube Do you want consulting provider notified?: Yes 04/30/21 08:06 Consult Physician Routine Consulting Provider: Lazaro Echeverria Consult Reason/Comments: ruptured renal cyst, trauma Do you want consulting provider notified?: Yes Primary care physician: [facility] Course: As above. Patient doing well today. Pain is minimal. He has been cleared by pulmonary and thoracic surgery. May discharge. Follow-up with pulmonary and neurology post discharge.
[2021-05-02] MEDS: traMADol 50 MG TAB PO PRN (11:39)
[2021-05-04] MEDS ORDERED: ERGOCALCIFEROL 1,250 MCG (50,000 IU) CAPSULE PO SCH (09:00)
== END 2021-05-02 12:42 | disposition home or self-care (01) | DRG 200 ==
LOC: EC 16:18 → 2SICU 19:45
PROVIDERS: ADMIT Surgery; ATTEND Surgery
PROC: 0W9B30Z Drainage of Left Pleural Cavity with Drainage Device, Percutaneous Approach (ICD-10-PCS; principal; 2021-04-29)
DX: S27.2XXA Traumatic hemopneumothorax, initial encounter (principal); J98.11 Atelectasis; S27.329A Contusion of lung, unspecified, initial encounter; S22.42XA Multiple fractures of ribs, left side, initial encounter for closed fracture; T79.7XXA Traumatic subcutaneous emphysema, initial encounter; E78.5 Hyperlipidemia, unspecified; I25.10 Atherosclerotic heart disease of native coronary artery without angina pectoris; N28.1 Cyst of kidney, acquired; W11.XXXA Fall on and from ladder, initial encounter; Z79.899 Other long term (current) drug therapy; Z87.891 Personal history of nicotine dependence; Z95.5 Presence of coronary angioplasty implant and graft; K21.9 Gastro-esophageal reflux disease without esophagitis; R61 Generalized hyperhidrosis; I95.9 Hypotension, unspecified; R00.1 Bradycardia, unspecified
CPT/HCPCS: 36415; 71045; 71046; 71250; 74177; 80048; 80053; 81001; 85025; 85027; 85610; 85730; 93005; 96361; 96374; 96375; 99284

== ENCOUNTER → 2021-09-10 | Outpatient (CLI) | payer BC ==
--- NOTE | 2021-09-10 21:08 | CT ---
EXAMINATION TYPE: CT abdomen wo/w con DATE OF EXAM: 09/10/2021 COMPARISON: CT 04/29/2021 HISTORY: f/u renal cysts CT DLP: 687 mGycm Automated exposure control for dose reduction was used. TECHNIQUE: Helical acquisition of images was performed from the lung bases through the top of iliac crest to include entire abdomen. CONTRAST: Performed with Oral Contrast and without and with IV Contrast, patient injected with 100 mL of Isovue 300. FINDINGS: LUNG BASES: No significant abnormality is appreciated. LIVER/GB: No significant abnormality is appreciated. PANCREAS: No significant abnormality is seen. SPLEEN: No significant abnormality is seen. ADRENALS: Low dense right adrenal nodule is again seen. KIDNEYS: Findings are similar to prior exam. Multilocular cyst formation again noted at the upper юлия e the left kidney, no surrounding fluid on today's exam. There is some associated crescentic soft tis radha attenuation, findings are similar to prior exam, an additional exophytic cyst present at the midp ole to lower pole the left kidney which shows increased Hounsfield unit, possibly hemorrhagic cyst, s ome subcentimeter cystic foci are associated with the right kidney. No definite enhancement following contrast administration. BOWEL: No significant abnormality is seen. LYMPH NODES: No significant abnormality is appreciated. OSSEOUS STRUCTURES: There is some left-sided rib fractures with nonunion possibly present. FREE AIR: No Free Air visible ASCITES: None visible. RETROPERITONEAL ADENOPATHY: No Retroperitoneal Adenopathy visible. OTHER: IMPRESSION: 1 RENAL CYSTS SHOW ESSENTIALLY STABLE APPEARANCE
== END | disposition home or self-care (01) ==
LOC: RADCTMAIN 16:53
PROVIDERS: ATTEND Urology
DX: N28.1 Cyst of kidney, acquired (principal)
CPT/HCPCS: 74170; Q9967

== ENCOUNTER → 2025-03-21 | Outpatient (CLI) | payer MEDICARE ==
--- NOTE | 2025-03-21 15:02 | CT ---
EXAMINATION TYPE: CT abdomen wo/w con DATE OF EXAM: 03/21/2025 11:49 AM COMPARISON: None. CLINICAL INDICATION: Male, 65 years old with history of R10.9 flank pain, LT SIDED FLANK PAIN TECHNIQUE:CT scan of the abdomen is performed with Oral Contrast and with IV Contrast, patient inject ed with 100 ml mL of Isovue 300. CT DLP: 1255 mGycm, Automated exposure control for dose reduction was used. FINDINGS: LUNG BASES-: No visible nodule. No infiltrate. LIVER/GB: No calcified gallstones. No space occupying hepatic lesion. Biliary tree is of normal ca liber. PANCREAS: No inflammation. No distinct mass. SPLEEN: No splenic enlargement. No lesion seen. ADRENALS: No nodule. No thickening. KIDNEYS/BLADDER: No hydronephrosis. No nephrolithiasis. Septated cyst with septal calcification upp er pole left kidney slightly larger in size in the prior study and currently measures 7.7 x 5.7 cm. N o solid renal masses. Urinary bladder grossly unremarkable. BOWEL: Normal appendix. Normal bowel caliber. No inflammation. LYMPH NODES: No greater than 1cm abdominal or pelvic lymph nodes are appreciated. AORTA: No significant abnormality. OSSEOUS STRUCTURES: No significant abnormality is seen. OTHER: No significant additional abnormality is seen. IMPRESSION: 1. Septated left renal cyst. [facility], , 03/21/2025 3:00 PM
== END | disposition home or self-care (01) ==
LOC: RADCTMAIN 10:27
PROVIDERS: ATTEND Family Medicine
DX: N28.1 Cyst of kidney, acquired (principal)
CPT/HCPCS: 74170; Q9967